=== PATIENT | male | born 1970 | race African-American/Black ===

== ENCOUNTER 2024-09-17 12:06 | Emergency (ER) | payer MEDICAID, OTHER ==
[~2024-09-17] VITALS: Ht 175.3 cm; Wt 68.3 kg
[2024-09-17] MEDS: methylPREDNISolone SOD SUCC 125 MG/2 ML VL ONE (12:28)
[2024-09-17 13:00] VITALS: BP 103/77; PULSE 88; RESP 14; TEMP 98.2; O2SAT 98
--- NOTE | 2024-09-17 13:54 | ED.PDOC ---
Musculoskeletal HPI Comments 53 year old male presents to the ED with chief complaint of left arm pain. Patient reports that he had went to get something to drink from the kitchen last night, however, when at the top of the stairs leading to the 1st floor, he became dizzy and fell all 17 steps down. Patient relays that since the fall, he has [place] experiencing left forearm and wrist pain/swelling. Patient denies any headache, LOC, dizziness, nausea, vomiting, and diarrhea. Chief Complaint: Fall Injury Time Seen by MD: 13:47 Primary Care Provider: unknown Reviewed Notes: Nurses Notes, Medications, Allergies Information Source: Patient Mode of Arrival: EMS Location: Left Extremity Location: Forearm, Wrist Timing: Hours Prehospital treatment: None Severity: Moderate Able to Move Extremity: Yes Pain: Moderate Mechanism: Blunt Trauma Circumstances: Fall Onset of Symptoms: After Trauma Symptoms: Pain DVT Risk Factors: NONE Last Tetanus: UTD Past Medical History Past Medical History (Other): Hydocephalus, neuropathy Surgical History: Denies all surgeries Family History Family History: Reviewed,noncontributory to illness Social History Smoker: Non-Smoker Alcohol: Denies ETOH Use Drugs: Denies Drug Use Lives In: Home Constitutional: denies: chills, diaphoresis, fatigue, fever, malaise, sweats, weakness, others EENTM: denies: blurred vision, double vision, ear bleeding, ear discharge, ear drainage, ear pain, ear ringing, eye pain, eye redness, hearing loss, mouth pain, mouth swelling, nasal discharge, nose bleeding, nose congestion, nose pain, photophobia, tearing, throat pain, throat swelling, voice changes, others Respiratory: denies: cough, hemoptysis, orthopnea, SOB at rest, shortness of breath, SOB with excertion, stridor, wheezing, others Cardiovascular: denies: chest pain, dizzy spells, diaphoresis, Dyspnea on exertion, edema, irregular heart beat, left arm pain, lightheadedness, palpitations, PND, syncope, others Gastrointestinal: denies: abdomen distended, abdominal pain, blood streaked bowels, constipated, diarrhea, dysphagia, difficulty swallowing, hematemesis, melena, nausea, poor appetite, poor fluid intake, rectal bleeding, rectal pain, vomiting, others Genitourinary: denies: burning, dysuria, flank pain, frequency, hematuria, incontinence, penile discharge, penile sore, pain, testicle pain, testicle swelling, urgency, others Neurological: denies: dizziness, fainting, headache, left sided numbness, left sided weakness, numbness, paresthesia, pre-existing deficit, right sided numbnes s, right sided weakness, seizure, speech problems, tingling, tremors, weakness, others Musculoskeletal: reports: others (Left wrist and forearm pain); denies: back pain, gout, joint pain, joint swelling, muscle pain, muscle stiffness, neck pain Integumetry: denies: bruises, change in color, change in hair/nails, dryness, laceration, lesions, lumps, rash, wounds, others Allergic/Immunocompromised: denies: Difficulty Healing, Frequent Infections, Hives, Itching, others Hematologic/Lymphatic: denies: anemia, blood clots, easy bleeding, easy bruising, swollen glands, others Endocrine: denies: excessive hunger, excessive sweating, excessive thirst, excessive urination, flushing, intolerance to cold, intolerance to heat, unexplained weight gain, unexplained weight loss, others Psychiatric: denies: anxiety, bipolar disorder, depression, hopeless, panic disorder, schizophrenia, sleepless, suicidal, others All Other Systems: Reviewed and Negative Physical Exam General Appearance: No Apparent Distress, Normal HEENT: Normal ENT Inspection, Pharynx Normal, TMs Normal Neck: Full Range of Motion, Non-Tender, Normal, Normal Inspection Respiratory: Chest Non-Tender, Lungs Clear, No Accessory Muscle Use, No Respiratory Distress, Normal Breath Sounds Cardiovascular: No Edema, No JVD, No Murmur, No Gallop, Normal Peripheral Pulses, Regular Rate/Rhythm Breast Exam: Deferred Gastrointestinal: No Organomegaly, Non Tender, No Pulsatile Mass, Normal Bowel Sounds, Soft Genitalia: Deferred Pelvic: Deferred Rectal: Deferred Extremities: No calf tenderness, Normal capillary refill, Normal inspection, Normal range of motion, Non-tender, No pedal edema Musculoskeletal : Location: Left Extremity Location: Forearm, Wrist Apperance: Normal, Tenderness (Tenderness to left forearm and left wrist. +2 radial pulse. ) Neurologic: Alert, at risk specialist II-XII nml as Tested, Normal Affect, Normal Mood, No Sensory Deficits, Other (Unsteady gait) Cerebellar Function: Normal Reflexes: Normal Skin: Dry, Normal Color, Warm Lymphatic: No Adenopathy Was a procedure done? Was a procedure done?: No Differential Diagnosis EXT Differential Diagnosis: Fracture, Sprain, Contusion, Strain X-Ray, Labs, Meds, VS Vital Signs Date Time Temp Pulse Resp B/P (MAP) Pulse Ox O2 Delivery O2 Flow Rate FiO2 09/17/24 13:00 98.2 88 14 103/77 (86) 98 98.2 09/17/24 12:28 82 09/17/24 12:25 98.3 92 16 110/76 (87) 98 98.3 Left Wrist XR: FINDINGS/IMPRESSION: Nondisplaced distal radial fracture. Left Forearm XR: FINDINGS/IMPRESSION: Nondisplaced radial fracture. Left Elbow XR: FINDINGS/IMPRESSION: There is no evidence of acute fracture or dislocation. Medial epicondyl chronic avulsion fracture. The alignment is anatomical. There is no radiopaque foreign body. 53-year-old male presents here status post fall. He states he fell down 17 flights of stairs. He states he took his Seroquel was lying in bed felt sleepy but then became thirsty and therefore he went downstairs and fell. Patient states he is not on any blood thinners. He did have a headache previously but no longer does. On my evaluation he is generally well-appearing. He does have pain and swelling to his left extremity. I ordered a CT of the brain however patient refused stating it does not want a CT scan of the brain been. Patient has a nontender CT and L-spine therefore low suspicion for acute spinal fracture. Patient's pelvis is stable low suspicion for pelvic fracture. I also ordered blood work however the patient refused. X-rays of his left wrist demonstrates a nondisplaced radial fracture. X-rays also demonstrates medial epicondyle chronic avulsion fracture. However before I am able to place a splint and speak with the patient regarding the results patient had eloped the emergency department. Time of 1ST Reevaluation: 14:47 Reevaluation 1ST: Improved Patient Education/Counseling: Diagnosis, Treatment Family Education/Counseling: No Family Present Departure 1 Departure Time of Disposition: 15:00 Impression: Primary Impression: Nondisplaced fracture of distal end of left radius Additional Impressions: Eloped from emergency department Dizziness Fall (on) (from) other stairs and steps, initial encounter Disposition: 07 LEFT AWOL/ELOPED Condition: Fair Critical Care Note Critical Care Time?: No Stability Stability form required: No Heart Score Heart Score: Heart Score Response (Comments) Value History N/A 0 EKG N/A 0 Age N/A 0 Risk Factors N/A 0 Troponin N/A 0 Total 0 I personally scribed for NAPOLEON ALDRIDGE MD ([email or web address]) on 09/17/24 at 13:54. Electronically submitted by Federico Oh ([email or web address]). I personally scribed for NAPOLEON ALDRIDGE MD ([email or web address]) on 09/17/24 at 14:54. Electronically submitted by Federico Oh ([email or web address]). I personally scribed for NAPOLEON ALDRIDGE MD ([email or web address]) on 09/17/24 at 14:55. Electronically submitted by Federico Oh ([email or web address]). NAPOLEON ALDRIDGE MD Sep 17, 2024 13:54
--- NOTE | 2024-09-17 14:10 | DVH ---
EXAM: XY L ELBOW 3 VIEW XRAY CLINICAL INDICATION: ro fracture, edema TECHNIQUE: XY L ELBOW 3 VIEW XRAY Comparison: None FINDINGS/IMPRESSION: There is no evidence of acute fracture or dislocation. Medial epicondyl chronic avulsion fracture. The alignment is anatomical. There is no radiopaque foreign body.
--- NOTE | 2024-09-17 14:18 | DVH ---
EXAM: XY L WRIST 3+ VIEW XRAY CLINICAL INDICATION: ro fracture TECHNIQUE: XY L WRIST 3+ VIEW XRAY Comparison: None FINDINGS/IMPRESSION: Nondisplaced distal radial fracture.
--- NOTE | 2024-09-17 14:20 | DVH ---
EXAM: XY L FOREARM XRAY CLINICAL INDICATION: ro fracture TECHNIQUE: XY L FOREARM XRAY Comparison: None FINDINGS/IMPRESSION: Nondisplaced radial fracture.
--- NOTE | 2024-09-17 18:16 | ECG ---
[facility] Test Date: 2024-09-17 Test Time: 12:28:02 Pat Name: SOL BETTENCOURT Department: ED Room: Gender: Prosthetist: wendy : 1970 Requested By: NAPOLEON ALDRIDGE Order Number: [id number] Reading MD: Joseph Stuart Measurements Intervals [place] Rate: 82 P: 47 MT: 138 QRS: 13 QRSD: 79 T: 30 QT: 365 QTc: 427 Interpretive Statements Sinus rhythm Electronically Signed On 09-19-2024 20:29:08 PDT by Joseph Stuart Please click the below link to view image of tracing.
== END 2024-09-17 14:15 | disposition left against medical advice (07) ==
LOC: EDBD 12:06 → ER 12:06
DX: S52.592A Other fractures of lower end of left radius, initial encounter for closed fracture (principal); Z98.890 Other specified postprocedural states; W10.8XXA Fall (on) (from) other stairs and steps, initial encounter; Y93.89 Activity, other specified; Y92.89 Other specified places as the place of occurrence of the external cause; Y99.8 Other external cause status
CPT/HCPCS: 73080; 73090; 73110; 82947; 93005